=== PATIENT | female | born 1975 | race Caucasian/White ===

== ENCOUNTER 2020-01-02 20:01 | Emergency (ER) | payer MEDICAID, SELFPAY ==
[2020-01-02 20:17] VITALS: BP 176/106; PULSE 74; RESP 18; TEMP 36.7; O2SAT 97; BMI 31.3
--- NOTE | 2020-01-02 21:41 | ED_ITS ---
HPI - Fall General: Chief Complaint: Fall Stated Complaint: fall Time Seen by Provider: 01/02/20 21:41 History of Present Illness: HPI Narrative: Patient is a 44-year-old female comes to the ED after having a fall and hitting her head. Fall occurred 2 days ago. Patient says she was smoking a cigarette and standing when she lost her balance and fell back and hurt her head hit a concrete wall. Right side of head is what hit a concrete wall or bleeding from head. After fall patient has had some nausea, headache and also some right side of the face tingling sensation. Denies any vision change, numbness or weakness to extremities. Associated symptoms-after fall: Reports headache(s); Denies abdominal pain, chest pain, hematuria or neck pain Review of Systems Const: Denies: fever(s), chills or fatigue Eyes: Denies: change in vision or eye discomfort ENMT: Denies: throat pain, odynophagia, nasal discharge or nasal congestion Card: Denies: chest pain, palpitations, edema, swelling of feet/ankles, dyspnea on exertion or orthopnea Resp: Denies: dyspnea, productive cough or non-productive cough GI: Reports: nausea; Denies: abdominal pain, vomiting, diarrhea, constipation or hematochezia : Denies: flank pain, dysuria or hematuria Musc: Denies: neck pain, back pain or extremity swelling Skin/Breast: Denies: rash or new lesions Neuro: Reports: headache(s) and sensory changes (right side of face tingling); Denies: numbness in extremities or weakness in extremities [facility] ED PFSH: Social History Smoking and tobacco status: current every day smoker Female Reproductive History: Date of last menstrual period: 12/26/19 Physical Exam Const: COMMON NORMALS: no acute distress, patient oriented x3 and alert GENERAL APPEARANCE: cooperative and comfortable HENMT: COMMON NORMALS: normocephalic HEAD & SCALP: normocephalic and scalp tenderness (right parietal region had mild tenderness to palpation.); no Sam's sign, no contusion, no raccoon eyes and no scalp lesion MOUTH: Normal oral and palatal mucosa present THROAT: posterior oropharynx normal and uvula midline Eye: COMMON NORMALS: Equal, round and reactive pupils present, EOMs intact bilaterally and normal visual robertson by confrontation PUPIL: Yes Equal, round and reactive pupils present Neck/C-Spine: COMMON NORMALS: supple GENERAL: Yes normal visual inspection Resp: COMMON NORMALS: normal respiratory effort, No retractions, No use of accessory muscles and clear to auscultation bilaterally AUSCULTATION: clear to auscultation bilaterally Cardio: COMMON NORMALS: regular rate, regular rhythm, S1 normal heart sound present, S2 normal heart sound present, No gallops present (Cardio), No clicks present (Cardio), No murmurs present (Cardio) and Peripheral pulses 2+ throughout RATE: regular rate RHYTHM: regular rhythm HEART SOUNDS: S1 normal heart sound present and S2 normal heart sound present PERIPHERAL PULSES: Peripheral pulses 2+ throughout GI: COMMON NORMALS: Normal to inspection, nondistended, normoactive bowel sounds present, Soft to palpation, non-tender and no masses PALPATION: Yes Soft to palpation : COMMON NORMALS: Yes no CVA tenderness BLADDER/KIDNEY EXAM: Yes no CVA tenderness Back/Pelvis: COMMON NORMALS: no CVA tenderness Extremity: COMMON NORMALS: normal to inspection and no pedal edema Neuro: COMMON NORMALS: patient oriented x3, CN's II-XII intact bilaterally, moves all extremities, no focal motor deficits and no sensory deficits noted SENSORIUM/ORIENTATION: Yes alert COORDINATION/BALANCE: [id number]-[id number] test normal and [id number]-cq-[id number] test normal GAIT: Yes Normal gait present SENSORY EXAM: Yes extremities (intact) MOTOR EXAM: 5/5 motor strength present throughout COORDINATION: [id number]-[id number] test normal and ycas-cb-lske test normal Skin: COMMON NORMALS: no rashes or lesions noted GENERAL SKIN EXAM: no rashes or lesions noted and dry skin Course Vital Signs: Vital signs: Vital Signs Temperature 98.1 F 01/02/20 20:17 Pulse Rate 76 01/02/20 23:04 Respiratory Rate 16 01/02/20 23:04 Blood Pressure 210/116 01/02/20 23:04 Pulse Oximetry 97 01/02/20 23:04 MDM - Fall MDM Narrative: Medical decision making narrative: Patient is a 44-year-old female comes to the ED after having a fall and hitting her head. She was having a headache and nausea. Neuro exam was completely normal showing no deficits. CT of the head showed no acute findings. I discussed with patient about her high blood pressure readings while here in the ED. I told patient I would like for her to stay so I can monitor patient and treat her blood pressure. Patient refused and did not want to stay. I discussed with patient the potential risks of high blood pressure. Patient still wanted to leave and signed an AMA w anthony. She was told she can come back to the ED if she is having any worsening symptoms. I told patient to discuss blood pressure with PCP at next visit. Imaging Data^: CT Head: Attestation: I personally reviewed and interpreted this imaging study as follows: Radiologist's impression: [address] [address] [address] Scan Report Signed Patient: Yanci Hahn Unit #: [id number] : 1975 Age/Sex: 44 / F ADM Date: 01/02/20 Loc: ER Room/Bed: Attending Dr: Ordering Provider/Ordering MD: Evens Guillaume Date of Service: 01/02/20 Procedure(s): CT head wo con* [id number] Accession Number(s): [id number] Report Number: [id number] PROCEDURE INFORMATION: Exam: CT Head Without Contrast Exam date and time: 01/02/2020 9:46 PM Age: 44 years old Clinical indication: Injury or trauma; Fall; Work related; Initial encounter; Blunt trauma (contusions or hematomas); Without loss of consciousness; Injury details: Fell hit head 2 days ago; Additional info: Fall and hit head on concrete TECHNIQUE: Imaging protocol: Computed tomography of the head without contrast. Radiation optimization: All CT scans at this facility use at least one of these dose optimization techniques: automated exposure control; mA and/or kV adjustment per patient size (includes targeted exams where dose is matched to clinical indication); or iterative reconstruction. COMPARISON: CT head wo con 03/11/2016. RADIATION DOSE METRICS: Total DLP: 860.87 mGy-cm FINDINGS: Brain: No acute intracranial hemorrhage or mass effect. No definite acute infarct by CT. Ventricles: Ventricle size is normal for age. Bones/joints: No definite acute skull fracture. Sinuses: Included paranasal sinuses are essentially clear. Mastoid air cells: No significant acute finding. Submandibular/Parotid glands: In the right parotid gland, there is a 12 x 6 mm nodule, nonspecific in appearance. Possibilities might include pleomorphic adenoma or Warthin's tumor. Other neoplasm not excluded. This was present on 03/11/2016, similar in size and appearance. Lack of significant growth in an almost 4 year interval would argue for a benign process. CT/CT head wo con* [id number] IMPRESSION: 1. No acute intracranial hemorrhage or mass effect. 2. Other findings discussed above. Radiation Dose CTDIVOL = (mGy): DLP = 860.87 (mGy-cm) Dictated By: Nathan Wilks MD Signed By: Nathan Wilks MD Signed Date/Time: 01/02/202216 DD/ 15 Discharge Plan Discharge Patient Disposition: Home, Self-Care Clinical Impression: Fall as cause of accidental injury at home as place of occurrence Qualifiers: Encounter type: initial encounter Qualified Code(s): W19.XXXA - Unspecified fall, initial encounter Condition: Stable Prescriptions: New Zofran 4 mg tablet 4 mg PO DAILY Qty: 10 RF: 0 No Action Keppra 1,000 mg Tablet 1,000 mg PO BID RF: 0 gabapentin 800 mg Tablet 800 mg PO BID RF: 0 Discharge Orders: Discharge Order (Routine); Ordered 01/02/20 Ordered By: Evens Guillaume Referrals: Jayme Alvarez MD [Primary Care Provider] - Discharge Diet: Regular Discharge Activity: Increase activity as tolerated Activity Restrictions/Additional Instructions: Follow-up with PCP in 7 days for reevaluation. I am prescribing you some Zofran and you can take that as needed for any nausea. Rest for the next couple days to help with some of your symptoms. You can take Tylenol or ibuprofen for any headaches. Continue taking all your home meds as previously prescribed. Discharge Date/Time: 01/02/20 23:13 Coding Level of Care Code ED Housecalls Nurse for Margaret Fwd Exam Comprehensive
[2020-01-02] MEDS: ibuprofen 600 mg Tablet PO (22:12)
[2020-01-02 22:14] VITALS: BP 189/112; PULSE 73; RESP 18; O2SAT 97
[2020-01-02 23:04] VITALS: BP 210/116; PULSE 76; RESP 16; O2SAT 97
== END 2020-01-02 23:13 | disposition home or self-care (01) ==
PROVIDERS: Emergency Provider Physician Assistant; PCP Family Medicine
DX: S09.90XA Unspecified injury of head, initial encounter (principal); W19.XXXA Unspecified fall, initial encounter; F17.210 Nicotine dependence, cigarettes, uncomplicated
CPT/HCPCS: 12345; 70450; 99281; 99283

== ENCOUNTER → 2021-04-22 09:28 | Outpatient (BNVA) | payer OTHER, SELFPAY | PROVIDERS: PCP Family Medicine; Visit Provider Psychiatry & Neurology Psychiatry | DX: F43.12 Post-traumatic stress disorder, chronic (principal) | CPT/HCPCS: 80061; 83036 ==

== ENCOUNTER 2023-05-25 09:43 | Outpatient (CLI) | payer OTHER, SELFPAY ==
[2021-04-27 12:12] VITALS: BP 148/94; BMI 37.9
--- NOTE | 2023-05-25 09:56 | XR_ITS ---
WS: [id number] Lumbar spine, 3 views, 05/25/2023 Clinical Data: BACK PAIN/REMOTE SURGERY 2006 Comparison: Lumbar spine, 09/27/2016. Findings: There is an anterior lumbar fusion L4-L5 with a disc spacer. The left L5 screw has fractured and has not changed or migrated. There are surgical clips anterior to the L5 and S1 vertebral bodies. The tra nsverse processes and SI joints are normal. There are no compression fractures. There are cholecystec sai clips in the right upper quadrant. Impression: Stable anterior lumbar fusion L4-L5.
== END 2023-05-25 09:44 | disposition home or self-care (01) ==
PROVIDERS: PCP Family Medicine; Visit Provider Dermatology
DX: M54.50 Low back pain, unspecified (principal); Z98.1 Arthrodesis status
CPT/HCPCS: 72100

== ENCOUNTER 2023-08-05 09:39 | Outpatient (CLI) | payer MEDICAID, SELFPAY ==
[2021-04-27 12:12] VITALS: BP 148/94; BMI 37.9
--- NOTE | 2023-08-05 09:44 | MR_ITS ---
WS: [id number] MRI LEFT SHOULDER NONCONTRAST TECHNIQUE: Axial T2, axial PD, coronal PD, coronal T2 fat-sat, and sagittal T2 fat-sat. Patient unabl e to complete the entire examination due to pain. CLINICAL INFORMATION: LEFT SHOULDER PAIN COMPARISON: None. FINDINGS: Mild degenerative arthritis AC joint with mild edema. Slight subacromial spurring. Mild narrowing of the subacromial space. Normal supraspinatus. Normal infraspinatus. Normal teres minor. Subscapularis is normal in appearance. Normal biceps tendon in the bicipital groove. Glenoid labrum appears grossly normal. No bone marrow edema. Intra-articular biceps tendon appears intact. IMPRESSION: 1. Mild degenerative arthritis AC joint with mild edema. Slight subacromial spurring with impingemen t distal supraspinatus. 2. Rotator cuff is intact. 3. Normal biceps tendon in the bicipital groove. 4. Intra-articular biceps tendon appears intact. 5. No other suspicious findings.
== END 2023-08-05 09:40 | disposition home or self-care (01) ==
LOC: RAD 09:39
PROVIDERS: PCP Family Medicine; Visit Provider Family Medicine
DX: M19.012 Primary osteoarthritis, left shoulder (principal)
CPT/HCPCS: 73221

== ENCOUNTER → 2023-09-07 13:48 | Outpatient (BNVA) | payer MEDICAID, SELFPAY ==
[2021-04-27 12:12] VITALS: BP 148/94; BMI 37.9
== END ==
PROVIDERS: PCP Family Medicine; Referring Provider Family Medicine; Visit Provider Specialist
DX: M25.812 Other specified joint disorders, left shoulder
CPT/HCPCS: 73030; 99204

== ENCOUNTER → 2024-06-12 08:00 | Outpatient (BNVA) | payer MEDICAID, SELFPAY ==
[2021-04-27 12:12] VITALS: BP 148/94; BMI 37.9
== END ==
PROVIDERS: PCP Family Medicine; Referring Provider Family Medicine; Visit Provider Psychiatry & Neurology Neurology
DX: G40.909 Epilepsy, unspecified, not intractable, without status epilepticus (principal); G25.81 Restless legs syndrome; I10 Essential (primary) hypertension; G43.909 Migraine, unspecified, not intractable, without status migrainosus; F15.91 Other stimulant use, unspecified, in remission; F17.200 Nicotine dependence, unspecified, uncomplicated
CPT/HCPCS: 99203

== ENCOUNTER 2024-06-27 13:45 | Outpatient (CLI) | payer MEDICAID, SELFPAY ==
[2021-04-27 12:12] VITALS: BP 148/94; BMI 37.9
--- NOTE | 2024-06-27 13:45 | MR_ITS ---
WS: [id number] MRI BRAIN WITH AND WITHOUT CONTRAST HISTORY: G40.909 - Epilepsy, unspecified, not intractable, without... COMPARISON: CT head 01/02/2020 TECHNIQUE: Multiplanar imaging performed through the brain with MultiHance 20 ml's IV. No acute infarcts are seen. Tse-white matter differentiation is well preserved. There is a few scatt ered subcortical white matter lesions predominantly in the frontal lobes. No large territory infarct. No significant atrophy or volume loss. No susceptibility artifacts or prior lacunar infarcts. Ventricles and extra-axial spaces are normal. Clivus and pituitary gland are normal. Visualized posterior fossa and brainstem are also normal. Postcontrast images are negative for masses or vascular malformations. Dural venous sinuses are normal. Paranasal sinuses: Well aerated with no significant disease. Mastoid air cells: Normal. Calvarium and scalp: Normal. Incidental cyst is associated with the LEFT mandibular condyle. Probably degenerative in etiology. MR/MR head wo/w con [id number] IMPRESSION: 1. No acute infarct or hemorrhage. 2. No significant volume loss. There are few scattered T2 and FLAIR signal hyp erintensities in the subcortical white matter. These can be seen with small ves servando ischemic disease, diabetes, smoking or migraines. 3. No enhancing masses.
[2024-06-27] MEDS: gadobenate dimeglumine 20 mL vial IV (14:55)
== END 2024-06-27 13:46 | disposition home or self-care (01) ==
PROVIDERS: PCP Family Medicine; Visit Provider Psychiatry & Neurology Neurology
DX: G40.909 Epilepsy, unspecified, not intractable, without status epilepticus (principal)
CPT/HCPCS: 70553

== ENCOUNTER → 2024-10-16 07:59 | Outpatient (BNVA) | payer MEDICAID, SELFPAY ==
[2021-04-27 12:12] VITALS: BP 148/94; BMI 37.9
== END ==
PROVIDERS: PCP Family Medicine; Referring Provider Psychiatry & Neurology Neurology; Visit Provider Psychiatry & Neurology Neurology
DX: R56.9 Unspecified convulsions (principal)
CPT/HCPCS: 95816; 95819

== ENCOUNTER 2025-03-19 16:37 | Emergency (ER) | payer MEDICAID, SELFPAY ==
[2021-04-27 12:12] VITALS: BP 148/94; BMI 37.9
[2025-03-19 17:09] VITALS: BP 142/89; PULSE 72; RESP 18; TEMP 36.7; O2SAT 95; BMI 40.3
--- NOTE | 2025-03-19 17:39 | ED_ITS ---
HPI - GI Bleed 2 General: Chief complaint: GI Bleed Stated complaint: abd pain, bloody stool, passing out, dizzy Time Seen by Provider: 03/19/25 17:36 History of Present Illness: 49-year-old female with a history of sei zure disorder, anxiety, depression, morbid obesity and hypertension who presents emergency room with pelvic abdominal pain and GI bleeding. She says she went to the bathroom overnight and could not go to the bathroom and just passed blood and almost passed out. She has been very dizzy and lightheaded since. And anytime she goes to bathroom she does not pass stool she just passes bright red blood. Pain is in her central pelvic region and radiates up on occasion. No dysuria. No chest pain. No shortness of breath. No altered mental status. No focal motor deficits. No fevers. Related Data Home Medications ?Medication ?Instructions ?Recorded ?Confirmed lisinopril 20 mg tablet mg PO 09/07/23 10/16/24 tizanidine 2 mg tablet mg PO 09/07/23 10/16/24 aripiprazole 2 mg tablet 2 mg PO DAILY 06/12/2410/16 levetiracetam 1,000 mg tablet 1,000 mg PO BID 06/12/24 10/16/24 omeprazole 40 mg capsule,delayed 40 mg PO DAILY 10/16/24 release ropinirole 0.25 mg tablet 0.25 mg PO DAILY 06/12/24 sertraline 50 mg tablet mg PO 10/16/24 10/16/24 Previous Rx's ?Medication ?Instructions ?Recorded prazosin 5 mg capsule 10 mg (2 x 5 mg) PO .HS #60 caps 10/22/21 ciprofloxacin HCl 500 mg tablet 500 mg PO BID 10 days #20 tabs 03/19/25 hydrocodone 5 mg-acetaminophen 325 1 tab PO Q6H PRN pa in #20 tabs 03/19/25 mg tablet metronidazole 500 mg tablet 500 mg PO Q8H 10 days #30 tabs 03/19/25 polyethylene glycol 3350 17 17 g PO DAILY #510 grams 0 03/19/25 gram/dose oral powder (Miralax) Allergies Allergy/AdvReac Type Severity Reaction Status Date / Time baclofen Allergy Unknown Unknown Verified 03/19/25 17:13 cyclobenzaprine (From Allergy Unknown Unknown Verified 03/19/25 17:13 Flexeril) meloxicam (From Mobic) Allergy Unknown Unknown Verified 03/19/25 17:13 zolpidem (From Ambien) AdvReac Severe Makes Verified 03/19/25 17:13 sleepwalk Review of Systems 2 Narrative: Constitutional symptoms: Negative except as documented in HPI. Skin symptoms: Negative except as documented in HPI. Eye symptoms: Negative except as documented in HPI. ENMT symptoms: Negative except as documented in HPI. Respiratory symptoms: Negative except as documented in HPI. Cardiovascular symptoms: Negative except as documented in HPI. Gastrointestinal symptoms: Negative except as documented in HPI. Genitourinary symptoms: Negative except as documented in HPI. Musculoskeletal symptoms: Negative except as documented in HPI. Neurologic symptoms: Negative except as documented in HPI. Psychiatric symptoms: Negative except as documented in HPI. Endocrine symptoms: Negative except as documented in HPI. PFSH ED 2 PFSH: Social History Smoking and tobacco/nicotine status: current every day tobacco/nicotine user cigarettes Packs smoked per day: 0.5 Years cigarettes smoked: 30 Quit status (tobacco/nicotine): has tried quititng Number of times tried to quit tobacco: 4 Second hand smoke exposure: Yes Physical Exam 2 Narrative: EXAM NARRATIVE: General: Alert, no acute distress. Skin: Warm, dry. Head: Normocephalic, atraumatic. Neck: Supple, trachea midline. Eye: Extraocular movements are intact. Ears, nose, mouth and throat: mucosa moist. Cardiovascular: Regular, Normal peripheral perfusion. Respiratory: Lungs are clear to auscultation, respirations are non-labored, breath sounds are equal, Symmetrical chest wall expansion. Gastrointestinal: Soft, Nontender, Non distended Musculoskeletal: Normal ROM, no deformity. Neurological: Alert and oriented, No focal neurological deficit observed. Psychiatric: Cooperative, appropriate mood & affect. Course 2 Vital Signs: Vital signs: Vital Signs Temperature 98.1 F 03/19/25 17:09 Pulse Rate 78 03/19/25 19:00 Respiratory Rate 18 03/19/25 17:09 Blood Pressure 126/83 03/19/25 18:30 Pulse Oximetry 96 03/19/25 19:00 Oxygen Delivery Me thod Room Air 03/19/25 19:00 MDM - GI Bleed Medical Decision Making Medical decision making: Differential diagnosis for patient who presents with hematochezia/bright red blood per rectum including but not limited to and based on the above HPI, review of systems and physical exam: Internal hemorrhoid bleeding, diverticular bleeding, irritated colonic mucosa. This is most often not life-threatening. Main concerns would be for anemia. Also if this were a very brisk upper GI bleed there might be an elevation in the BUN. But likely this is lower GI bleeding. Orders placed to evaluate differential diagnosis based on the above differential, HPI and physical exam Lab Review: Laboratory results were reviewed and interpreted by myself the emergency room physician. Mild leukocytosis. No anemia. No renal failure. Urinalysis is negative for infection. CT of the abdomen pelvis with contrast: Sigmoid colitis. No other acute process. This was reviewed and interpreted by myself the emergency room physician. I also reviewed the radiology report. I reviewed the patient's medical record. Reexamination: Patient remained stable. No increased work of breathing. No altered mental status. No focal motor deficits. Assessment and plan: Colitis ?First dose Cipro and Flagyl p.o. here in the emergency room. 1 bottle of mag citrate. 1 hydrocodone. - Discharged home - Discussed plan with patient. Answered any questions. - Evaluation and treatment of this problem were appropriate in the emergency setting. Lab Data 03/19/25 17:50 03/19/25 17:50 Radiology Impressions Abdomen/Pelvis CT 03/19/25 18:31 IMPRESSION: 1. Findings suggestive of infectious/inflammatory colitis along the sigmoid colon. No abscess formation or other evidence of complication. 2. Hepatosplenomegaly. COMMENTS: Consistent with the [employer]'s Incidental Findings Committee white paper (J Am Candice Radiol 2018): Any incidental renal lesion less than 1 cm or classified as too small to characterize, or any incidental cystic renal lesion characterized as simple-appearing, is likely benign. No follow-up imaging is recommended for these lesions per consensus recommendations based on imaging criteria. Laboratory Results WBC 15.95 10^3/uL (3.29-11.43) H 03/19/25 17:50 RBC 4.87 10^6/uL (3.85-5.65) 03/19/25 17:50 Hgb 12.20 g/dL (11.27-16.99) 03/19/25 17:50 Hct 38.0 % (36-47) 03/19/25 17:50 MCV 78.0 fl (85-98) L 03/19/25 17:50 MCH 25.1 pg (27-33) L 03/19/25 17:50 MCHC 32.1 g/dL (30-55) 03/19/25 17:50 RDW 16.1 % (12.1-15.1) H 03/19/25 17:50 Plt Count 303 10^3/cmm (157-399) 03/19/25 17:50 MPV 10.9 fL (7.4-10.4) H 03/19/25 17:50 Neut % (Auto) 77.3 % 03/19/25 17:50 Lymph % (Auto) 16.1 % 03/19/25 17:50 Mathews % (Auto) 5.0 % 03/19/25 17:50 Eos % (Auto) 0.8 % 03/19/25 17:50 Baso % (Auto) 0.4 % 03/19/25 17:50 Neut # (Auto) 12.35 10^3/uL (1.8-7.7) H 03/19/25 17:50 Lymph # (Auto) 2.6 10^3/uL (0.8-4.8) 03/19/25 17:50 Mathews # (Auto) 0.8 10^3/uL (0.2-0.9) 03/19/25 17:50 Eos # (Auto) 0.1 10^3/uL (0.0-0.8) 03/19/25 17:50 Baso # (Auto) 0.1 10^3/uL (0.0-0.1) 03/19/25 17:50 Nucleated RBC % (auto) 0 % 03/19/25 17:50 Nucleated RBCs # 0.0 /100WBC 03/19/25 17:50 PT 13.90 SECONDS (12.1-14.9) 03/19/25 17:50 INR 1.00 (0.8-1.2) 03/19/25 17:50 Sodium 135 mmol/L (136-145) L 03/19/25 17:50 Potassium 3.6 mmol/L (3.5-5.1) 03/19/25 17:50 Chloride 99 mmol/L (98-107) 03/19/25 17:50 Carbon Dioxide 25 mmol/L (22-29) 03/19/25 17:50 Anion Gap 14.6 (5-19) 03/19/25 17:50 BUN 18 mg/dL (6-20) 03/19/25 17:50 Creatinine 0.8 mg/dL (0.5-0.9) 03/19/25 17:50 GFR Calculation 75.9 mL/min (90-130) L 03/19/25 17:50 Glucose 152 mg/dL (65-115) H 03/19/25 17:50 Calculated Osmolality 285 mOsm/kg (285-295) 03/19/25 17:50 Lactic Acid 1.7 mmol/L (0.5-2.2) 03/19/25 17:50 Calcium 9.2 mg/dL (8.5-10.5) 03/19/25 17:50 Total Bilirubin 0.6 mg/dL (0.15-1.2) 03/19/25 17:50 AST 50 U/L (0-32) H 03/19/25 17:50 ALT 44 U/L (0-33) H 03/19/25 17:50 Alkaline Phosphatase 162 U/L (35-105) H 03/19/25 17:50 C-Reactive Protein 39.6 mg/L (0.0-4.9) H 03/19/25 17:50 Total Protein 8.2 g/dL (6.6-8.7) 03/19/25 17:50 Albumin 3.8 g/dL (3.5-5.2) 03/19/25 17:50 Globulin 4.4 g/dL (1.3-4.6) 03/19/25 17:50 Lipase 40 U/L (13-60) 03/19/25 17:50 Urine Color Dark yellow (Yellow) A 03/19/25 17:51 Urine Appearance Clear (CLEAR) 03/19/25 17:51 Urine pH 5.5 (5-7) 03/19/25 17:51 Ur Specific [place] 1.027 (1.005-1.030) 03/19/25 17:51 Urine Protein Trace (Negative) A 03/19/25 17:51 Urine Glucose (UA) Negative (Normal) 03/19/25 17:51 Urine Ketones Trace (Negative) 03/19/25 17:51 Urine Blood Negative (Negative) 03/19/25 17:51 Urine Nitrate Negative (Negative) 03/19/25 17:51 Urine Bilirubin Negative (Negative) 03/19/25 17:51 Urine Urobilinogen 1.0 mg/dL (Negative) 03/19/25 17:51 Ur Leukocyte Esterase Trace (Negative) A 03/19/25 17:51 Urine RBC 0-2 /hpf (0-2) 03/19/25 17:51 Urine WBC 6-10 /hpf (0-5) 03/19/25 17:51 Ur Squamous Epith Cells 0-5 /hpf (0-5) 03/19/25 17:51 Amorphous Sediment Not Reportable 03/19/25 17:51 Urine Bacteria 1+ /hpf (NONE) H 03/19/25 17:51 Hyaline Casts 0.40 /lpf 03/19/25 17:51 All radiology interpretation(s) finalized by discharge Discharge Plan Discharge Patient Disposition: Home Clinical Impression: Colitis Condition: Stable Prescriptions: New hydrocodone-acetaminophen 5-325 mg tablet 1 tab PO Q6H PRN (Reason: pain) Qty: 20 0RF metronidazole 500 mg tablet 500 mg PO Q8H 10 Days Qty: 30 0RF ciprofloxacin HCl 500 mg tablet 500 mg PO BID 10 Days Qty: 20 0RF polyethylene glycol 3350 [Miralax] 17 gram/dose powder 17 g PO DAILY Qty: 510 0RF Rx Instructions: Take 1 scoop daily while taking pain medications. No Action prazosin 5 mg capsule 10 mg PO .HS Qty: 60 2RF lisinopril 20 mg tablet PO tizanidine 2 mg tablet PO sertraline 50 mg tablet PO ropinirole 0.25 mg tablet 0.25 mg PO DAILY levetiracetam 1,000 mg tablet 1,000 mg PO BID aripiprazole 2 mg tablet 2 mg PO DAILY omeprazole 40 mg capsule,delayed release(DR/EC) 40 mg PO DAILY Discharge Orders: Discharge ED (Routine); Ordered 03/19/25 Ordered By: Sharmila Morgan Referrals: Foster Orourke MD [Primary Care Provider, Family Practice] Discharge Diet: Advance as tolerated Discharge Activity: Increase activity as tolerated Patient Instructions: Colitis (ED), Opioid Safety, Pain Management, Patient Portal & Marshall Instructions Activity Restrictions/Additional Instructions: Thank you for choosing [facility] for your healthcare needs today. You have been screened and evaluated and felt safe for discharge. Health conditions do change or evolve sometimes and as such it is important that you follow up with your Primary Doctor to be re checked, 3-5 days is a general good time frame for follow up. You are always welcome to return to the ED for re assessment if your symptoms are worsening or you have new concerns Print Language: [place]an Coding Level of Care Code ED Central Processing Technician for Margaret Molina
[2025-03-19 17:41] VITALS: BP 148/105; PULSE 75; O2SAT 96
[2025-03-19 18:00] VITALS: BP 125/83; PULSE 71; O2SAT 94
[2025-03-19 18:09] LABS: Hematocrit 38.0 % (36-47); Hemoglobin 12.20 g/dL (11.27-16.99); Mean Corpuscular HGB Conc 32.1 g/dL (30-55); Mean Corpuscular Hemoglobin 25.1 pg (27-33); Mean Corpuscular Volume 78.0 fl (85-98); Nucleated Red Blood Cells % 0 %; Platelet Count 303 10^3/cmm (157-399); Red Blood Count 4.87 10^6/uL (3.85-5.65); White Blood Count 15.95 10^3/uL (3.29-11.43)
[2025-03-19 18:19] LABS: Alanine Aminotransferase 44 U/L (0-33); Albumin Level 3.8 g/dL (3.5-5.2); Alkaline Phosphatase 162 U/L (35-105); Anion Gap 14.6 (5-19); Aspartate Amino Transferase 50 U/L (0-32); Blood Urea Nitrogen 18 mg/dL (6-20); Calcium 9.2 mg/dL (8.5-10.5); Carbon Dioxide 25 mmol/L (22-29); Chloride 99 mmol/L (98-107); Creatinine Clr Calc Pharmacy 107.4974; Globulin 4.4 g/dL (1.3-4.6); Glucose 152 mg/dL (65-115); Lipase 40 U/L (13-60); Osmolality Calculated 285 mOsm/kg (285-295); Potassium 3.6 mmol/L (3.5-5.1); Sodium 135 mmol/L (136-145); Total Protein 8.2 g/dL (6.6-8.7)
[2025-03-19 18:20] LABS: Lactic Sepsis W/Reflex 1.7 mmol/L (0.5-2.2)
[2025-03-19 18:30] VITALS: BP 126/83; O2SAT 96
--- NOTE | 2025-03-19 18:31 | CTR_ITS ---
PROCEDURE INFORMATION: Exam: CT Abdomen And Pelvis With Contrast Exam date and time: 03/19/2025 6:58 PM Age: 49 years old Clinical indication: Abdominal pain; Generalized; Prior surgery; Surgery date: 6+ months; Surgery type: Lspine fusion TECHNIQUE: Imaging protocol: Computed tomography of the abdomen and pelvis with contrast. Radiation optimization: All CT scans at this facility use at least one of these dose optimization techniques: automated exposure control; mA and/or kV adjustment per patient size (includes targeted exams where dose is matched to clinical indication); or iterative reconstruction. Contrast material: OMNIPAQUE 350; Contrast volume: 100 ml; Contrast route: INTRAVENOUS (IV); COMPARISON: [place] liver [id number] 12/24/2024 9:35 AM RADIATION DOSE METRICS: Total DLP (mGy-cm): 1128.03 FINDINGS: Liver: The liver is enlarged, measuring 19.8 cm craniocaudal. Borderline hepatic steatosis. Gallbladder and biliary ducts: Status post cholecystectomy. Pancreas: Normal. No ductal dilation. Spleen: The spleen measures 13.9 cm craniocaudal. Adrenal glands: Normal. No mass. Kidneys and ureters: Subcentimeter left renal cortical hypodensities too small to characterize but likely represents a cyst. Stomach and bowel: Segmental wall thickening with mild pericolonic fat stranding along the sigmoid colon. No evidence of bowel obstruction. Appendix: No evidence of appendicitis. Intraperitoneal space: Unremarkable. No free air. No significant fluid collection. Vasculature: Unremarkable. No abdominal aortic aneurysm. Lymph nodes: Unremarkable. No enlarged lymph nodes. Urinary bladder: Unremarkable as visualized. Reproductive: Unremarkable as visualized. Bones/joints: Anterior fusion at L4-L5 with the adjacent surgical clips extending to the lumbosacral junction. Soft tissues: Unremarkable. CT/CT abdomen pelvis w con* [id number] IMPRESSION: 1. Findings suggestive of infectious/inflammatory colitis along the sigmoid colon. No abscess formation or other evidence of complication. 2. Hepatosplenomegaly. COMMENTS: Consistent with the [employer]'s Incidental Findings Committee white paper (J Am Candice Radiol 2018): Any incidental renal lesion less than 1 cm or classified as too small to characterize, or any incidental cystic renal lesion characterized as simple-appearing, is likely benign. No follow-up imaging is recommended for these lesions per consensus recommendations based on imaging criteria.
[2025-03-19 18:41] LABS: INR 1.00 (0.8-1.2); Prothrombin Time 13.90 SECONDS (12.1-14.9)
[2025-03-19 19:00] VITALS: PULSE 78; O2SAT 96
[2025-03-19] MEDS: iohexol 350 mg/mL 500 mL Btl (per mL) IV (19:03)
[2025-03-19 19:06] LABS: Glucose Urine UA Negative (Normal); Nitrate Urine Negative (Negative); Specific Gravity, Urine 1.027 (1.005-1.030)
[2025-03-19] MEDS: HYDROcodone-acetaminophen 10-325 mg Tablet 1 TAB PO (19:53)
[2025-03-19] MEDS: magnesium citrate Btl 296 mL PO (19:54)
[2025-03-19 19:56] VITALS: BP 134/84; PULSE 86; O2SAT 96
--- OUTSIDE RECORDS SUMMARY | 2025-03-20 18:07 | XMS_ITS | Patient Health Record ---
Author Organization [facility] Address [address], [place] [id number] Care Team Providers Care Outreach Specialist Name Role Phone Adan Mccray MD Primary Care Provider Unavailab lynnette Gaston MD, Vicente Unavailable [phone] Earnest Arteaga MD Unavailable Unavailable Reason For Referral No Information Medications Medication SIG (Take, Route, Fr equency, Duration) Notes Start Date End Date Status Soma 350 mg 1 tab PO orally TID prn spasm; Duration: 30 day(s) Active Neurontin 300 mg 2 cap PO orally TID; Duration: 30 day(s) Active Methadose 10 mg 1-2 tab(s) PO orally Q6-8H prn pain (max 5/day; hold within 6 hours of planned sleep); Duration: 30 day(s) Active Voltaren Topical 1% 2 g applied topicall y 4 times a day; Duration: 30 day(s) Activ e Ambien 10 mg 1 tab orally once a day (at bedtime); Duration: 30 day(s) Ac tive ALPRAZolam 1 mg 1 tab orally BID; Du ration: 30 day(s) Active citalopram 40 mg 1 tab orally BID; Du ration: 30 day(s) Active Plan Of Treatment No Information Insurance Providers Payer Name Payer Address Payer Phone Subscriber Number Group Number Insured Name Patient Relationship to Insured Coverage Start Date Coverage End Date [place] [employer] [address] [place] [address] [id number] Yanci Hahn Self - patient is the insured Medical (General) History Medical History History ICD Code Low back pain Surgical History Surgery Date(Month/Year) L4-5 ALIF 12/12/07 Cholecystectomy 2000 Hospitalization History Reason Date(Month/Year) surgeries
== END 2025-03-19 20:06 | disposition home or self-care (01) ==
PROVIDERS: Emergency Medicine; Emergency Provider Emergency Medicine; PCP Family Medicine
DX: K52.9 Noninfective gastroenteritis and colitis, unspecified (principal); F17.210 Nicotine dependence, cigarettes, uncomplicated
CPT/HCPCS: 36415; 74177; 80053; 81001; 83605; 83690; 85025; 85610; 86140; 87040; 99284; J9999

== ENCOUNTER 2025-03-25 06:41 | Outpatient (CLI) | payer MEDICAID, SELFPAY ==
[2021-04-27 12:12] VITALS: BP 148/94; BMI 37.9
--- NOTE | 2025-03-25 07:11 | MR_ITS ---
WS: [id number] MRI LUMBAR SPINE NONCONTRAST TECHNIQUE: Sagittal T1, T2 and STIR imaging. Axial T1 and T2 imaging. CLINICAL INFORMATION: SPINAL STENOSIS OF LUMOSACRAL REGION COMPARISON: MRI 2013 FINDINGS: Mild lumbar curve. No acute compression. Prior postoperative changes anterior screw fixation L4-5 with interbody fusion. L1-L2: Normal. L2-L3: Mild annular bulging. Slight narrowing of the RIGHT subarticular recess. Spinal canal and foramina are patent. L3-L4: Mild annular bulging. Slight effacement of the ventral thecal sac. Slight narrowing of the LEFT subarticular recess. Mild facet arthropathy. Spinal canal and foramen are patent. L4-L5: Interbody fusion. Mild facet arthropathy. Mild RIGHT foraminal narrowing. Spinal canal is patent. L5-S1: Slight anterolisthesis L5 on S1 has progressed. Mild disc bulging with slight effacement of the ventral thecal sac. Spinal canal is patent. Moderate facet arthropathy. Visualized pelvic bony structures: Normal. Paravertebral soft tissues: Normal. Small bilateral renal cysts. MR/MR lumbar spine wo con* [id number] IMPRESSION: 1. Mild lumbar curve. No acute compression. 2. Anterior screw fixation L4-5 with interbody fusion graft appears stable. 3. Grade 1 anterolisthesis L5 on S1 progressed compared to previous with mild annular bulging. Slight effacement of the ventral thecal sac. 4. Mild RIGHT L4-5 foraminal narrowing. 5. Mild annular bulging L2-L3 and L3-L4 with slight narrowing of the RIGHT L2- 3 and LEFT L3-4 subarticular recess. 6. Moderate facet arthropathy L5-S1.
== END 2025-03-25 06:42 | disposition home or self-care (01) ==
LOC: RAD 06:41
PROVIDERS: PCP Family Medicine; Visit Provider Family Medicine
DX: M48.07 Spinal stenosis, lumbosacral region (principal); M51.369 Other intervertebral disc degeneration, lumbar region without mention of lumbar back pain or lower extremity pain; M47.817 Spondylosis without myelopathy or radiculopathy, lumbosacral region
CPT/HCPCS: 72148